=== PATIENT | female | born 1985 | race Caucasian/White ===

== ENCOUNTER 2017-05-10 11:43 | Outpatient (CLI) | payer MEDICAID ==
--- NOTE | 2017-05-10 17:50 | XRAY Report ---
THREE-VIEW PARANASAL SINUSES: 05/10/2017 CLINICAL INDICATION: sinus pain. FINDINGS: AP, Shaikh, lateral views of the paranasal sinuses demonstrate complete opacification of t he right maxillary sinus. The nasal septum is midline. No osseous destruction is appreciated. IMPRESSION: COMPLETE OPACIFICATION OF THE RIGHT MAXILLARY SINUS. JOB #: [id number] EXT JOB #:[id number]
--- NOTE | 2017-05-10 18:03 | XRAY Report ---
THREE VIEW LEFT KNEE: 05/10/2017 CLINICAL INDICATION: Pain. AP, lateral, sunrise views of the left knee demonstrate no evidence of fracture or dislocation. The joint spaces are preserved. A moderate effusion is present. IMPRESSION: MODERATE KNEE JOINT EFFUSION, BUT NO EVIDENCE OF FRACTURE. JOB #: [id number] EXT JOB #:[id number]
== END 2017-05-10 11:44 | disposition home or self-care (01) ==
LOC: DI.N 11:43
PROVIDERS: ATTEND Physician Assistant
DX: R51 Headache (principal); M25.462 Effusion, left knee
CPT/HCPCS: 70220

== ENCOUNTER 2017-05-24 13:21 | Outpatient (CLI) | payer MEDICAID ==
--- NOTE | 2017-05-24 17:12 | Ultrasound Report ---
PELVIC ULTRASOUND: 05/24/2017 CLINICAL INDICATION: Menstrual pain. TECHNIQUE: Transabdominal pelvic ultrasound performed for global evaluation. Transvaginal pelvic ul trasound performed for detailed evaluation. Real-time scanning performed and static images obtained. The uterus is anteverted, measuring 8.7 x 4.6 x 3.0 cm. The endometrial echo complex measures 13 mm. No focal myometrial lesion is present. The right ovary measures 4.0 x 1.9 x 1.8 cm, and is unremar kable. The left ovary measures 3.6 x 3.3 x 1.8 cm, and contains a 1.6 x 1.5 x 1.5 cm echogenic nodul e, suspicious for a small dermoid. No free fluid is present. IMPRESSION: NORMAL UTERUS AND RIGHT OVARY. LIKELY SMALL DERMOID IN THE LEFT OVARY. NO FREE FLUID. JOB #: [id number] EXT JOB #:[id number]
== END 2017-05-24 13:22 | disposition home or self-care (01) ==
LOC: DI 13:21
PROVIDERS: ATTEND Physician Assistant
DX: N94.6 Dysmenorrhea, unspecified (principal)
CPT/HCPCS: 76830; 76856

== ENCOUNTER 2017-09-12 10:41 | Outpatient (CLI) | payer MEDICAID ==
[2017-09-12 11:33] LABS: BILIRUBIN,URINE NEGATIVE (NEGATIVE); PH,URINE 5.5 PH (5.0-7.5)
[2017-09-12 11:35] LABS: BASOPHILS % (AUTO) 0.6 %; EOSINOPHILS # (AUTO) 0.2 10^3/uL (0.0-0.7); EOSINOPHILS % (AUTO) 4.7 %; HCT - HEMATOCRIT 36.3 % (37.0-47.0); HGB - HEMOGLOBIN 12.3 g/dL (12.0-16.0); LYMPHOCYTES # (AUTO) 1.5 10^3/uL (1.5-3.5); LYMPHOCYTES % (AUTO) 39.7 %; MEAN CORPUSCULAR HGB CONC 33.8 g/dL (32.0-36.0); MEAN CORPUSCULAR VOLUME 94.4 fL (81.0-99.0); MEAN PLATELET VOLUME 7.5 fL (7.9-10.8); MONOCYTES # (AUTO) 0.4 10^3/uL (0.0-1.0); MONOCYTES % (AUTO) 9.3 %; NEUTROPHILS # (AUTO) 1.8 10^3/uL (1.5-6.6); NEUTROPHILS % (AUTO) 45.7 %; RED BLOOD COUNT 3.84 10^6/uL (4.20-5.40); RED CELL DISTRIBUTION WIDTH 14.1 % (12.0-15.0); UNCORRECTED WHITE BLOOD COUNT 3.9 x10^3/uL; WHITE BLOOD COUNT 3.9 x10^3/uL (4.8-10.8)
[2017-09-12 11:58] LABS: ALBUMIN/GLOBULIN RATIO 1.3 (1.0-2.2); BILIRUBIN,TOTAL 0.6 mg/dL (0.2-1.0); CALCIUM 9.3 mg/dL (8.5-10.3); CREATININE 0.7 mg/dL (0.4-1.0); POTASSIUM 3.9 mmol/L (3.5-5.0); TOTAL PROTEIN 7.5 g/dL (6.7-8.2)
== END 2017-09-12 10:42 | disposition home or self-care (01) ==
LOC: LAB 10:41
PROVIDERS: ATTEND Obstetrics & Gynecology
DX: Z01.818 Encounter for other preprocedural examination (principal); R10.2 Pelvic and perineal pain; N83.202 Unspecified ovarian cyst, left side
CPT/HCPCS: 36415; 80053; 81003; 85025; 86850; 86900; 86901; 93005

== ENCOUNTER 2017-09-14 06:12 | Day surgery (SDC) | payer MEDICAID ==
--- NOTE | 2017-09-12 15:03 | PREOP HISTORY & PHYSICAL ---
DATE OF ADMISSION/SURGERY: 09/14/2017 DIAGNOSES 1. Pelvic pain, severe dysmenorrhea. 2. Left ovarian cyst suspicious for dermoid on ultrasound. PROCEDURES: Diagnostic laparoscopy with probable left ovarian cystectomy; possible left oophorectomy; cystoscopy; possible destruction of endometriosis. HISTORY: The patient is a 31-year-old nulliparous woman who has had a longstanding history of central and left-sided pelvic pain. She was referred from her PCP for evaluation. Patient is plagued with severe dysmenorrhea and intermittent severe midline pelvic pain. The severity is high, 9/10, and occasionally she is bedridden from the dysmenorrhea. She has no significant dyspareunia. She has a history of irritable bowel syndrome, which has subsided. She has had extensive GI workup, and there is possibility of lactose intolerance, and she has changed her diet. She reports pelvic pain as sharp and high intensity. She has had unprotected intercourse for 10 years and has not achieved . There is concern of possibility of endometriosis. She has no vaginal discharge or STD history. GC and chlamydia cultures were negative. Ultrasound on 06/03/2017 documented normal uterine contour and right ovary. Left ovary had a 1.6 x 1.5 x 1.5 cm cyst that had echo characteristics suggestive of dermoid. Last menstrual period 08/09/2017. No abnormal Pap smear history. PAST MEDICAL HISTORY 1. History of bulimia and anorexia, which is in remission. 2. No noted cardiovascular disease. 3. History of anxiety and panic attacks. SURGICAL HISTORY: No prior surgery reported. ALLERGIES: NO KNOWN DRUG ALLERGIES. PATIENT SENSITIVE TO MORPHINE, REACTION UNKNOWN. MEDICATIONS: No current regular medication other than multivitamins. SOCIAL HISTORY: Currently single in stable relationship. No drug, tobacco, or alcohol use. 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 REVIEW OF SYSTEMS CONSTITUTIONAL: Negative. HEENT: Negative. CARDIOVASCULAR: Negative except for occasional palpitation, no long-lasting chest pain. RESPIRATORY: No current complaints. GENITOURINARY: History of IBS. Reference HPI. GENITOURINARY: Reference HPI. MUSCULOSKELETAL: Negative. BREASTS: Negative. NEUROLOGIC: Negative. PSYCHOLOGIC: Patient denies current depression or recurrence of bulimia symptoms. LYMPHATICS: Negative. PHYSICAL EXAMINATION GENERAL: Well groomed, pleasant. VITAL SIGNS: Posted. HEENT: Supple neck. No thyromegaly. Good dentition and no pharyngitis. LUNGS: Clear. CARDIAC: Regular, no murmur, no gallop. BREASTS: Deferred at patient request. ABDOMEN: Scaphoid. No hepatosplenomegaly. Mild pain to deep palpation in the midline left and right lower quadrant (but minimal). No CVA tenderness. VULVA: No lesions, no discharge. VAGINA: No blood or discharge present. CERVIX: Nulliparous, mild cervical motion tenderness, uterosacral tenderness. UTERUS: Retroverted, retroflexed, minimal tenderness to manipulation. ADNEXA: Both ovaries mobile. Right normal size; left slightly larger than expected, maybe 4 cm in diameter totally. MUSCULOSKELETAL: Normal movement of all limbs. No arthritides noted. NEUROLOGIC: Grossly intact. SKIN: No rashes or lesions. PREOPERATIVE LABORATORY: Pending. ASSESSMENT: Patient is a 31-year-old who has longstanding history of lower abdominal pain and pelvic pain that is probably not gastrointestinal in origin. There is a strong suspicion of endometriosis. Additionally, ultrasound reveals a cystic mass in the left ovary consistent with a dermoid cyst. Patient is an appropriate candidate for diagnostic laparoscopy and probable removal of left cystic mass. PLAN: Patient is consented for diagnostic laparoscopy, probable left ovarian cystectomy, possible left oophorectomy, and cystoscopy with probable electro- destruction of endometriosis. We have had two detailed discussions of the scope of the intended procedure. ACOG handouts were reviewed on pelvic pain, endometriosis, and ovarian cysts in a prior visit. Patient had all her questions answered and is consented for surgery. Patient was given preoperative Xanax for anxiety and also a bowel prep kit. During the exam under anesthesia phase, we will do bimanual exam to ensure that there is no intraseptal endometriosis present. JOB #: [id number] EXT JOB #:[id number] [facility]
[2017-09-14] MEDS ORDERED: LACTATED RINGERS 1,000 ML IV ONE ×3 (06:53→13:10)
[2017-09-14 06:54] LABS: HCG UR QUAL NEGATIVE
[2017-09-14] MEDS ORDERED: BUPIVACAINE 0.25% PF 30 ML VIAL SUBQ ONE ×2 (07:49)
[2017-09-14] MEDS ORDERED: ONDANSETRON 4 MG/2 ML VIAL IVP ONE (08:25)
[2017-09-14] MEDS ORDERED: NEOSTIGMINE 1 MG/1 ML 10 ML MDV IVP ONE (08:25)
[2017-09-14] MEDS ORDERED: ROCURONIUM 50 MG/5 ML VIAL IVP ONE (08:25)
[2017-09-14] MEDS ORDERED: GLYCOPYRROLATE 1 MG/5 ML VIAL IVP ONE (08:25)
[2017-09-14] MEDS ORDERED: DEXAMETHASONE 4 MG/ML VIAL IVP ONE (08:25)
[2017-09-14] MEDS ORDERED: PROPOFOL 200 MG/20 ML VIAL IVP ONE (08:25)
[2017-09-14] MEDS ORDERED: fentaNYL 100 MCG/2 ML VIAL IVP ONE (08:25)
[2017-09-14] MEDS ORDERED: KETOROLAC 30 MG/ML VIAL IVP ONE (08:25)
[2017-09-14] MEDS ORDERED: LIDOCAINE-MPF 2% 5 ML VIAL IM ONE (08:25)
[2017-09-14] MEDS ORDERED: MIDAZOLAM 2 MG/2 ML VIAL IVP ONE (08:25)
[2017-09-14] MEDS ORDERED: METHYLENE BLUE 0.5% 50 MG/10 ML AMPULE IVP ONE (09:19)
--- NOTE | 2017-09-14 09:50 | OPERATIVE REPORT ---
Operative Report - General Procedure Date: 09/14/17 Planned Procedure: Diagnostic laparoscopy; left ovarian cystectomy; cystoscopy Pre-Op Diagnosis: Pelvic and abdominal pain;Left ovarian cyst probableDermoid by ultrasound Procedure Performed: Diagnostic laparoscopy; left ovarian cystectomy; cystoscopy with bladder biopsy ; chromopertubation Post Op Diagnosis: Await pathology, no evidence of adhesive disease or endometriosis - Procedure Note Primary Surgeon: Flo Teresa MD Anesthesia Provider: Doyle SHIPMAN RA Anesthesia Technique: General ET tube Pathology: Pathology pending Estimated Blood Loss (mL): 10 Urine Output (mL): 200 Drain/Tube Type: Other (Thomason) Complications: None
[2017-09-14] MEDS ORDERED: HYDROmorphone 1 MG/ML SYRINGE ONE (10:07)
[2017-09-14] MEDS ORDERED: HYDROcod/ACETAM 5/325 MG TABLET ONE (11:03)
[2017-09-14] MEDS ORDERED: ONDANSETRON 4 MG/2 ML VIAL ONE (11:22)
[2017-09-14] MEDS ORDERED: METOCLOPRAMIDE 10 MG/2 ML VIAL ONE (13:06)
[2017-09-14] MEDS ORDERED: IBUPROFEN 600 MG TABLET PO ONE (13:28)
[2017-09-14 14:03] VITALS: BP 112/63
--- NOTE | 2017-09-14 16:17 | OPERATIVE REPORT ---
DATE OF SURGERY: 09/14/2017 00:00:00 PREOPERATIVE DIAGNOSES 1. Chronic pelvic pain with severe dysmenorrhea 2. Left ovarian cyst, suspicious for dermoid on ultrasound. POSTOPERATIVE DIAGNOSES 1. Chronic pelvic pain with severe dysmenorrhea, no evidence of endometriosis or adhesive disease. 2. Cystitis, await biopsy results. 3. Left ovarian cyst, apparent corpus luteum. PROCEDURES 1. Diagnostic laparoscopy. 2. Laparoscopic left ovarian cystectomy. 3. Cystoscopy with bladder biopsy. 4. Chromopertubation. SURGEON: Flo Teresa MD, FACOG, FICS ANESTHESIA: General, ET tube placed. HAND ROUTER OPERATOR: Doyle Gonzalez, certified nurse transmission specialist. COMPLICATIONS: None. BLOOD LOSS: Minimal, less than 10 mL. DRAINS: Thomason with Clear urine. FINDINGS 1. Exam under anesthesia finds a mid position, normal size uterus with no ovarian masses. Cervix appears to be normal, nulliparous without cervicitis or discharge. Rectovaginal exam was done, and there were no interseptal masses or nodularity detected. Normal anal tone. 2. Laparoscopy examined the pelvis and abdomen, in all quadrants. There was no adhesive disease. Detailed examination of the cul-de-sac revealed no stigmata of endometriosis. The vessels were prominent, but did not leave the impression of pelvic congestion syndrome. The uterus is normal sized with no irregularities. There was a 5 mm benign nodule at the left cornual area. The tubes were open and fluffy. There was free flow of dye from both the right and left tube. Both ovaries were closely examined. The right ovary seemed completely normal, without any excrescences and only a follicular cyst present. The left ovary had a larger cyst that was mostly in the substrate. On the surface overlying the cyst, there were inflammatory vessels. The ovary was opened and explored through 3/4 of its depth. The ultrasound finding corresponded to a 2x3 cm corpus luteum that had a calcific nodule at its apex. The cyst and nodule were removed and sent to pathology. Bladder showed cystitis at the trigone area with some glomerulization present. Biopsy was taken in the midline in this area of vascular change. Upper abdomen shows normal liver and gallbladder. The appendix appeared normal without inflammation. The appendix was adherent with filmy adhesions to the psoas muscle. TECHNIQUE: Prior to the procedure, we had a preop session with patient and . The procedure was reviewed including mechanics, risks, potential benefits, and possibility of no diagnosis being made. All questions were answered. Informed consent paperwork was signed. The patient was brought to the operating room and placed in a supine position for administration of general anesthesia. She was uneventfully induced and intubated. She was prepped and draped in the customary sterile fashion. Timeout briefing was done per protocol. Exam under anesthesia was done including rectovaginal exam. See findings. The uterine manipulator and Thomason were inserted. A small incision was then placed under the umbilical skin fold and Visiport laparoscopic trocar was uneventfully inserted. The abdomen was insufflated under 12 mm of pressure and examined. Right and left lower quadrant ports were placed under direct visualization. The abdomen and pelvis were assessed and photographed. Reference findings and photography. The left ovary was grasped at the uterosacral insertion point and stabilized. Next, using monopolar cautery, the ovarian serosa above the cyst was opened. Next, using a combination of electrocautery and blunt / traction dissection, the cystic mass was isolated, the cyst wall grasped, and the cyst removed in total. Additionally, there was a calcific nodule above the cyst that was grasped and excised with electrocautery. Judicious use of only a few touches of electrocautery left the ovary hemostatically secure. Reference photos. Next, the methylene blue solution was injected through the HUMI port. There was free spill of blue dye on the right and left side. At this point, the abdominal phase of this case was completed. The patient was placed in deep Trendelenburg. A liter and a half of fluid was placed in the abdomen, then allowed to force all the laparoscopic insufflation gas out. Additionally, 10 mL of Marcaine was placed through the port and into the residual fluid. All ports were removed. The skin was closed with interrupted subcuticular stitches of 4-0 Monocryl and dressed with Dermabond. An additional 5 mL of 0.25% Marcaine with epinephrine was placed into each skin wound. We then moved to the Cystoscopic phase of this case. Thomason was desufflated and removed. A 70-degree video cystoscope was brought to the field and atraumatically inserted through the urethra. The bladder was insufflated with warm normal saline and numerous photos were taken. There was some mild cystitis with vascular change suggestive of interstitial cystitis at the trigone. Single bladder biopsy was taken from this area. At this point, the bladder was rinsed once with warm normal saline and drained. Thomason catheter was replaced. All drapings were removed. Anesthesia was uneventfully reversed and patient aroused. Patient went to the recovery room in stable condition. Once awake, postoperative instructions were reviewed including warning signs and callback. Discharge medications were already written to include: 1. Motrin. 2. [place]. 3. Colace. Patient will be seen in the clinic in 2 weeks to review pathology reports. JOB #: [id number] EXT JOB #:[id number] MTDDaniel
== END 2017-09-14 06:13 | disposition home or self-care (01) ==
LOC: SDS 06:12
PROVIDERS: ATTEND Obstetrics & Gynecology
PROC: 0TBB8ZX Excision of Bladder, Via Natural or Artificial Opening Endoscopic, Diagnostic (ICD-10-PCS; 2017-09-14)
PROC: 3E1P38Z Irrigation of Female Reproductive using Irrigating Substance, Percutaneous Approach (ICD-10-PCS; 2017-09-14)
PROC: 0UB14ZZ Excision of Left Ovary, Percutaneous Endoscopic Approach (ICD-10-PCS; principal; 2017-09-14 07:30)
DX: N83.12 Corpus luteum cyst of left ovary (principal); N30.90 Cystitis, unspecified without hematuria
CPT/HCPCS: 52204; 58350; 58662; 81025; A9270; J1170; J7120

== ENCOUNTER 2018-03-30 10:45 | Outpatient (CLI) | payer MEDICAID ==
[2018-03-30 12:28] LABS: EOSINOPHILS # (AUTO) 0.1 10^3/uL (0.0-0.7); EOSINOPHILS % (AUTO) 3.9 %; LYMPHOCYTES # (AUTO) 1.1 10^3/uL (1.5-3.5); LYMPHOCYTES % (AUTO) 40.3 %; MEAN CORPUSCULAR HEMOGLOBIN 32.5 pg (27.0-31.0); MEAN CORPUSCULAR HGB CONC 33.2 g/dL (32.0-36.0); MEAN CORPUSCULAR VOLUME 97.7 fL (81.0-99.0); MEAN PLATELET VOLUME 8.3 fL (7.9-10.8); MONOCYTES # (AUTO) 0.3 10^3/uL (0.0-1.0); MONOCYTES % (AUTO) 9.4 %; NEUTROPHILS # (AUTO) 1.2 10^3/uL (1.5-6.6); NEUTROPHILS % (AUTO) 45.4 %; PLT - PLATELET COUNT 216 10^3/uL (130-450); RED BLOOD COUNT 3.69 10^6/uL (4.20-5.40); RED CELL DISTRIBUTION WIDTH 13.2 % (12.0-15.0); WHITE BLOOD COUNT 2.7 x10^3/uL (4.8-10.8)
[2018-03-30 12:48] LABS: PLATELET ESTIMATE, MANUAL NORMAL (130-450,000) (NORMAL); PLATELET MORPHOLOGY NORMAL APPEARANCE (NORMAL); RBC MORPHOLOGY (MULTIPLE) NORMAL APPEARANCE (NORMAL)
== END 2018-03-30 23:59 | disposition home or self-care (01) ==
LOC: LAB.N 10:45
PROVIDERS: ATTEND Nurse Practitioner
DX: K06.8 Other specified disorders of gingiva and edentulous alveolar ridge (principal); R04.0 Epistaxis
CPT/HCPCS: 36415; 85025

== ENCOUNTER 2018-05-01 09:19 | Outpatient (CLI) | payer MEDICAID ==
[2018-05-01 13:03] LABS: BASOPHILS % (AUTO) 0.7 %; EOSINOPHILS # (AUTO) 0.2 10^3/uL (0.0-0.7); EOSINOPHILS % (AUTO) 4.6 %; HGB - HEMOGLOBIN 11.8 g/dL (12.0-16.0); LYMPHOCYTES # (AUTO) 1.6 10^3/uL (1.5-3.5); LYMPHOCYTES % (AUTO) 35.5 %; MEAN CORPUSCULAR HEMOGLOBIN 33.4 pg (27.0-31.0); MEAN CORPUSCULAR HGB CONC 34.4 g/dL (32.0-36.0); MEAN CORPUSCULAR VOLUME 97.1 fL (81.0-99.0); MEAN PLATELET VOLUME 8.8 fL (7.9-10.8); MONOCYTES # (AUTO) 0.3 10^3/uL (0.0-1.0); MONOCYTES % (AUTO) 7.8 %; NEUTROPHILS # (AUTO) 2.2 10^3/uL (1.5-6.6); NEUTROPHILS % (AUTO) 51.4 %; PLT - PLATELET COUNT 237 10^3/uL (130-450); RED BLOOD COUNT 3.53 10^6/uL (4.20-5.40); RED CELL DISTRIBUTION WIDTH 13.1 % (12.0-15.0); WHITE BLOOD COUNT 4.4 x10^3/uL (4.8-10.8)
[2018-05-01 13:33] LABS: FERRITIN 23.6 ng/mL (11.0-306.8)
[2018-05-01 13:36] LABS: FOLATE 12.24 ng/mL (5.90 - >24.8)
[2018-05-01 13:40] LABS: % IRON SATURATION 8 % (20-50); IRON 20 ug/dL (28-170); TOTAL IRON BINDING CAPACITY 266 ug/dL (250-450); TRANSFERRIN 190 mg/dL (192-382)
== END 2018-05-01 09:20 | disposition home or self-care (01) ==
LOC: LAB.N 09:19
PROVIDERS: ATTEND Nurse Practitioner
DX: D64.9 Anemia, unspecified (principal); D72.819 Decreased white blood cell count, unspecified
CPT/HCPCS: 36415; 82607; 82728; 82746; 83540; 84466; 85025

== ENCOUNTER 2018-05-17 23:59 | Outpatient (CLI) | payer MEDICAID ==
[2018-05-17 19:02] LABS: BASOPHILS % (AUTO) 0.7 %; EOSINOPHILS # (AUTO) 0.1 10^3/uL (0.0-0.7); EOSINOPHILS % (AUTO) 2.7 %; HGB - HEMOGLOBIN 12.6 g/dL (12.0-16.0); LYMPHOCYTES # (AUTO) 1.1 10^3/uL (1.5-3.5); MEAN CORPUSCULAR HEMOGLOBIN 32.1 pg (27.0-31.0); MEAN CORPUSCULAR HGB CONC 33.2 g/dL (32.0-36.0); MEAN CORPUSCULAR VOLUME 96.7 fL (81.0-99.0); MEAN PLATELET VOLUME 8.5 fL (7.9-10.8); MONOCYTES # (AUTO) 0.3 10^3/uL (0.0-1.0); MONOCYTES % (AUTO) 9.8 %; NEUTROPHILS # (AUTO) 1.2 10^3/uL (1.5-6.6); NEUTROPHILS % (AUTO) 44.8 %; PLT - PLATELET COUNT 226 10^3/uL (130-450); RED BLOOD COUNT 3.92 10^6/uL (4.20-5.40); RED CELL DISTRIBUTION WIDTH 12.6 % (12.0-15.0); WHITE BLOOD COUNT 2.6 x10^3/uL (4.8-10.8)
[2018-05-17 19:16] LABS: ALBUMIN 4.1 g/dL (3.2-5.5); ALBUMIN/GLOBULIN RATIO 1.2 (1.0-2.2); BILIRUBIN,TOTAL 0.6 mg/dL (0.2-1.0); CALCIUM 9.4 mg/dL (8.5-10.3); CREATININE 0.7 mg/dL (0.4-1.0); TOTAL PROTEIN 7.4 g/dL (6.7-8.2)
[2018-05-17 19:23] LABS: THYROID STIMULATING HORMONE 1.17 uIU/mL (0.34-5.60)
[2018-05-17 19:25] LABS: FREE T4 (FREE THYROXINE) 0.85 ng/dL (0.58-1.64)
[2018-05-19 11:16] LABS: THYROID PEROXIDASE ANTIBODIES 1 IU/mL (<9)
== END 2018-05-18 | disposition home or self-care (01) ==
LOC: LAB.N 23:59
PROVIDERS: ATTEND Nurse Practitioner
DX: R53.83 Other fatigue (principal); H53.8 Other visual disturbances; L65.9 Nonscarring hair loss, unspecified; E55.9 Vitamin D deficiency, unspecified
CPT/HCPCS: 36415; 80050; 81599; 82306; 84439; 84481; 86376; 86800